=== PATIENT | male | born 1965 | race Caucasian/White ===

== ENCOUNTER → 2017-05-24 | Outpatient (CLI) | payer BC ==
[2017-05-24 18:22] LABS: INFLUENZA A PCR Neg for Influ A (NEG); INFLUENZA B PCR Neg for Influ B (NEG)
== END | disposition home or self-care (01) ==
LOC: C.LABBFT 13:52
PROVIDERS: ATTEND Physician Assistant Medical
DX: J06.9 Acute upper respiratory infection, unspecified (principal)

== ENCOUNTER → 2017-08-05 | Outpatient (CLI) | payer BC ==
--- NOTE | 2017-08-05 10:53 | DIAGNOSTIC IMAGING REPORT ---
L HIP UNILATERAL 2 VIEWS, R HIP UNILATERAL 2 VIEWS HISTORY: 51 years-old Male M25.551 Hip pain, [id number] bilateral hip pain without reported trauma COMPARISON: None available TECHNIQUE: 2 views of the bilateral hips right total of 4 images FINDINGS: LEFT: Minimal marginal spurring of acetabulum. No acute fracture, dislocation or significant degenerative changes. No avascular necrosis. Surgical clips project over the scrotal tissues. Probable phleboliths of the pelvis. RIGHT: No acute fracture, dislocation or significant degenerative changes. Bone mineralization appears to be within normal limits. No avascular necrosis. Soft tissues are unremarkable. IMPRESSION: No acute fracture, or significant degenerative changes. The above report was generated using voice recognition software. It may contain grammatical, syntax or spelling errors. Electronically signed by: Tyrel Scott M.D. 08/05/2017 10:51 AM Dictated Date/Time: 08/05/2017 10:49 AM
--- NOTE | 2017-08-05 10:53 | DIAGNOSTIC IMAGING REPORT ---
L HIP UNILATERAL 2 VIEWS, R HIP UNILATERAL 2 VIEWS HISTORY: 51 years-old Male M25.551 Hip pain, [id number] bilateral hip pain without reported trauma COMPARISON: None available TECHNIQUE: 2 views of the bilateral hips right total of 4 images FINDINGS: LEFT: Minimal marginal spurring of acetabulum. No acute fracture, dislocation or significant degenerative changes. No avascular necrosis. Surgical clips project over the scrotal tissues. Probable phleboliths of the pelvis. RIGHT: No acute fracture, dislocation or significant degenerative changes. Bone mineralization appears to be within normal limits. No avascular necrosis. Soft tissues are unremarkable. IMPRESSION: No acute fracture, or significant degenerative changes. The above report was generated using voice recognition software. It may contain grammatical, syntax or spelling errors. Electronically signed by: Tyrel Scott M.D. 08/05/2017 10:51 AM Dictated Date/Time: 08/05/2017 10:49 AM
== END | disposition home or self-care (01) ==
LOC: C.RAD1850 10:01
PROVIDERS: ATTEND Internal Medicine
DX: M25.551 Pain in right hip (principal); M25.552 Pain in left hip

== ENCOUNTER → 2017-08-05 | Outpatient (CLI) | payer BC | END | disposition home or self-care (01) | LOC: C.LABBFT 08:36 | PROVIDERS: ATTEND Internal Medicine | DX: R39.9 Unspecified symptoms and signs involving the genitourinary system (principal) ==

== ENCOUNTER → 2017-08-05 | Outpatient (CLI) | payer BC ==
[2017-08-05 12:58] LABS: BASO % 0.4 %; BASO ABS # 0.02 K/uL (0-0.2); EOS % 0.9 %; EOS ABS # 0.04 K/uL (0-0.5); HEMATOCRIT 44.8 % (42-52); HEMOGLOBIN 15.1 g/dL (14.0-18.0); LYMPH % 38.5 %; LYMPH ABS # 1.77 K/uL (1.2-3.4); MEAN CELL VOLUME 92.6 fL (80-100); MEAN CORPUSCULAR HEMOGLOBIN 31.2 pg (25-34); MEAN CORPUSCULAR HGB CONC 33.7 g/dl (32-36); MONO % 7.4 %; MONO ABS # 0.34 K/uL (0.11-0.59); NEUT % 52.8 %; NEUT ABS # 2.43 K/uL (1.4-6.5); PLATELET COUNT 211 K/uL (130-400)
[2017-08-05 13:55] LABS: ALBUMIN 3.7 gm/dl (3.4-5.0); ALT/SGPT 40 U/L (12-78); AST/SGOT 19 U/L (15-37); BLOOD UREA NITROGEN 14 mg/dl (7-18); CALCIUM 8.6 mg/dl (8.5-10.1); CARBON DIOXIDE 29 mmol/L (21-32); CREATININE 0.96 mg/dl (0.60-1.40); GLUCOSE 85 mg/dl (70-99); POTASSIUM 4.2 mmol/L (3.5-5.1); SODIUM 138 mmol/L (136-145)
[2017-08-05 14:05] LABS: ALKALINE PHOSPHATASE 57 U/L (45-117); CHOLESTEROL 148 mg/dl (0-200); LDL CHOLESTEROL CALCULATED 90 mg/dl; TOTAL PROTEIN 7.4 gm/dl (6.4-8.2)
== END | disposition home or self-care (01) ==
LOC: C.LABBFT 09:05
PROVIDERS: ATTEND Internal Medicine
DX: R39.9 Unspecified symptoms and signs involving the genitourinary system (principal); Z13.6 Encounter for screening for cardiovascular disorders

== ENCOUNTER → 2017-10-27 | Outpatient (CLI) | payer BC | END | disposition home or self-care (01) | LOC: C.LAB1850 12:07 | PROVIDERS: ATTEND Urology | DX: R97.20 Elevated prostate specific antigen [PSA] (principal) ==

== ENCOUNTER → 2017-11-03 | Outpatient (CLI) | payer BC | END | disposition home or self-care (01) | LOC: C.PATHSPEC 17:30 | PROVIDERS: ATTEND Urology | DX: R97.20 Elevated prostate specific antigen [PSA] (principal); C61 Malignant neoplasm of prostate ==

== ENCOUNTER → 2018-01-19 | Outpatient (CLI) | payer BC ==
[~2018-01-19] MED LIST: ACET300T2 PO; CIPR-255 PO; CLC100 PO; DTR5 PO
== END | disposition home or self-care (01) ==
LOC: C.LAB1850 11:18
PROVIDERS: ATTEND Urology
DX: C61 Malignant neoplasm of prostate (principal); R10.12 Left upper quadrant pain; R94.31 Abnormal electrocardiogram [ECG] [EKG]